=== PATIENT | female | born 1970 | race Caucasian/White ===

== ENCOUNTER 2018-05-06 12:31 | Emergency (ER) | payer OTHER ==
[2018-05-06] MEDS ORDERED: SODIUM CHLORIDE 0.9% 1000ML 1,000 ML IV ONE (12:35)
[2018-05-06] MEDS ORDERED: CALCIUM GLUCONATE 10% 100 MG/ML SOL IV ONE (12:35)
[2018-05-06] MEDS ORDERED: LORAZEPAM 2 MG/ML SOL ONE (12:36)
[2018-05-06] MEDS ORDERED: LORAZEPAM 2 MG/ML SOL IV ONE (12:36)
[2018-05-06] MEDS ORDERED: CALCIUM GLUCONATE 100 MG/ML SOL IV ONE (12:40)
[2018-05-06 12:51] VITALS: RESP 20; TEMP 97.8; O2SAT 100
[2018-05-06 13:08] LABS: BASOPHILS % (AUTO) 1 % (0-3); EOSINOPHILS % (AUTO) 1 % (0-9); HEMATOCRIT 33 % (35-47); HEMOGLOBIN 10.3 gm/dl (12.0-15.5); LYMPHOCYTES % (AUTO) 14.3 % (10-50); MEAN CORPUSCULAR HEMOGLOBIN 24.9 pg (27.0-32.0); MEAN CORPUSCULAR HGB CONC 31.4 gm/dl (32.0-36.0); MONOCYTES % (AUTO) 5.8 % (0-12); NEUTROPHILS % (AUTO) 78.3 % (37-80)
[2018-05-06 13:19] LABS: ALBUMIN 3.6 gm/dl (3.4-5.0); BILIRUBIN,TOTAL 0.5 mg/dl (0.2-1.0); CALCIUM 8.8 mg/dl (8.5-10.1); CARBON DIOXIDE 21.6 mEq/L (21-32); CREATININE 0.92 mg/dl (0.60-1.00); MAGNESIUM 1.4 mg/dl (1.8-2.4); POTASSIUM 3.3 mMol/L (3.5-5.1); TOTAL PROTEIN 7.1 gm/dl (6.4-8.2)
[2018-05-06 13:23] LABS: MEAN CORPUSCULAR VOLUME 79 fL (81-99)
[2018-05-06 13:24] LABS: ANISOCYTOSIS SLIGHT AMT
[2018-05-06 13:25] LABS: HYPOCHROMASIA SL AMT
[2018-05-06 13:33] VITALS: BP 134/87; PULSE 63
[2018-05-06] MEDS ORDERED: POTASSIUM CHLORIDE 10 MEQ TER PO ONE (13:37)
[2018-05-06] MEDS ORDERED: MAGNESIUM OXIDE 400 MG TAB ONE (13:43)
[2018-05-06 14:25] LABS: APPEARANCE,URINE SLIGHTLY CLOUDY; BILIRUBIN,URINE NEGATIVE (NEGATIVE); COLOR,URINE YELLOW; CRYSTALS NEGATIVE (0-3 AVE/HPF); GLUCOSE, URINE (UA) NEGATIVE (NEGATIVE); KETONES,URINE 2+ (NEGATIVE); LEUKOCYTE ESTERASE ,URINE NEGATIVE (NEGATIVE); NITRATE,URINE NEGATIVE (NEGATIVE); OCCULT BLOOD,URINE NEGATIVE (NEG-TRACE); RBC,URINE NEGATIVE (0-3AV/HPF); UROBILINOGEN,URINE 0.2 (0.2-1.0 EU); WBC,URINE 0-2 (0-5AV/HPF)
[2018-05-06 14:26] LABS: BACTERIA 2+ (< 1+)
[2018-05-07] MEDS ORDERED: MAGNESIUM OXIDE 400 MG TAB PO SCH (09:00)
== END 2018-05-06 14:40 | disposition home or self-care (01) | DRG 880 ==
LOC: ED 12:31
DX: F43.0 Acute stress reaction (principal); F41.8 Other specified anxiety disorders; E83.42 Hypomagnesemia
CPT/HCPCS: 36415; 70450; 80053; 81001; 83735; 85025; 87088; 96365; 96374; 96375; 99285; 99291; J0610; J2060; A9270-GY